=== PATIENT | male | born 1940 | race Hispanic/Latino ===

== ENCOUNTER → 2022-02-15 | Outpatient (CLI) | payer OTHER ==
[~2022-02-15] MED LIST: GADOTERATE MEGLUMINE 10 MMOL/20 ML VIAL IV ONE
== END | disposition home or self-care (01) ==
LOC: RAH 13:11
PROVIDERS: ATTEND Family Medicine
DX: M47.26 Other spondylosis with radiculopathy, lumbar region (principal)
CPT/HCPCS: 72158; A9575

== ENCOUNTER 2023-10-17 15:33 | Observation (INO) | payer OTHER ==
[~2023-10-17] VITALS: Ht 172.7 cm; Wt 80.1 kg
[~2023-10-17 15:33] MED LIST changes: +BENA10TA88 PO; +CEPH500B PO; -GADOTERATE MEGLUMINE 10 MMOL/20 ML VIAL IV ONE; +GLIP10TA9 PO; +METO25TA6 PO; +PIOG45TA4 PO; +SIMV40TA59 PO; +SITA100T12 PO; +TAMS-1 PO
[2023-10-17 15:59] LABS: BASOPHILS # (AUTO) 0.06 K/uL (0.00-0.20); BASOPHILS % (AUTO) 0.6 % (0.0-5.0); EOSINOPHILS # (AUTO) 0.25 K/uL (0.00-0.70); EOSINOPHILS % (AUTO) 2.4 % (0.0-8.0); HEMATOCRIT 43.4 % (42-54); IMMATURE GRANULOCYTE ABSOLUTE 0.04 K/uL (0-1); LYMPHOCYTES # (AUTO) 3.7 K/uL (1.0-4.8); LYMPHOCYTES % (AUTO) 35.5 % (21.0-51.0); MEAN CORPUSCULAR HGB CONC 32.3 g/dL (32.0-36.0); MEAN CORPUSCULAR VOLUME 92.9 fL (79-99); MONOCYTES # (AUTO) 1.1 K/uL (0.1-1.0); MONOCYTES % (AUTO) 10.2 % (3.0-13.0); NEUTROPHILS # (AUTO) 5.4 K/uL (1.8-7.7); NEUTROPHILS % (AUTO) 50.9 % (40.0-77.0); PLATELET COUNT (AUTO) 195 K/uL (130-400); RED BLOOD CELL COUNT(AUTO) 4.67 MIL/uL (4.50-6.20); RED CELL DISTRIBUTION WIDTH 14.9 % (11.0-15.5); WHITE BLOOD COUNT (AUTO) 10.6 K/uL (4.8-10.8)
[2023-10-17 16:09] LABS: CREATININE 1.8 mg/dL (0.5-1.3); POTASSIUM 4.2 mmol/L (3.5-5.1)
[2023-10-17 16:27] LABS: PROTHROMBIN TIME 10.8 SEC (9.6-11.6)
[2023-10-17 16:28] LABS: PARTIAL THROMBOPLASTIN TIME 27.9 SEC (26.3-35.5)
[2023-10-17] MEDS: ACETAMINOPHEN 325 MG TAB PO ONE (18:06)
[2023-10-17] MEDS: ATORVASTATIN 40 MG TABLET PO ONE (18:30)
[2023-10-17] MEDS ORDERED: LACTULOSE 20 GM/30 ML UDCUP PO PRN (18:30)
[2023-10-17] MEDS ORDERED: ACETAMINOPHEN 650 MG SUPPOSITORY RC PRN (18:30)
[2023-10-17] MEDS ORDERED: ACETAMINOPHEN 325 MG TAB PO PRN (18:30)
[2023-10-17] MEDS ORDERED: HYDRALAZINE 20MG/ML VIAL IV PRN (18:30)
[2023-10-17] MEDS ORDERED: IPRATROPIUM/ALBUTEROL SULFATE 3 ML SOLUTION IH PRN (18:30)
[2023-10-17] MEDS: ASPIRIN 81MG CHEW TAB PO ONE (18:31)
[2023-10-17 19:10] LABS: SARS-CoV-2, RNA, NAAT NEGATIVE SARS CoV-2 (NEGATIVE)
[2023-10-17 19:17] LABS: INFLUENZA TYPE A Negative For Type A (NEGATIVE); INFLUENZA TYPE B Negative For Type B (NEGATIVE)
[2023-10-17 22:08] LABS: APPEARANCE,URINE CLEAR (CLEAR); BILIRUBIN,URINE NEGATIVE (NEGATIVE); COLOR,URINE LIGHT-YELLOW (YELLOW); GLUCOSE, URINE (UA) NEGATIVE (NEGATIVE); KETONES,URINE NEGATIVE (NEGATIVE); LEUKOCYTE ESTERASE ,URINE NEGATIVE Leu/uL (NEGATIVE); NITRATE,URINE NEGATIVE (NEGATIVE); OCCULT BLOOD,URINE NEGATIVE (NEGATIVE); PH,URINE 6.5 (5.0-8.0); PROTEIN,URINE 70 mg/dL (NEGATIVE); UROBILINOGEN,URINE 0.2 mg/dL (0.2-1.0)
[2023-10-17 22:12] LABS: ADD UA MICROSCOPIC YES
[2023-10-17 22:13] LABS: BACTERIA,URINE RARE /HPF (None Seen); RBC,URINE 0-1 /HPF (0-1); SQUAMOUS EPITHELIAL CELL,UR RARE /HPF (0-2); WBC,URINE 0-1 /HPF (0-1)
[2023-10-17] MEDS ORDERED: SITA50TA PO (23:38)
[2023-10-17] MEDS ORDERED: CLOP75TA32 PO (23:38)
[2023-10-17] MEDS ORDERED: METO-408 PO (23:38)
[2023-10-17 23:50] VITALS: BP 165/71; PULSE 58; RESP 22
[2023-10-18] VITALS (15 sets, daily range): BP systolic 134–164; BP diastolic 63–89; PULSE 57–84; RESP 16–20; O2SAT 97–100
[2023-10-18] MEDS: 0.9%NACL 1000ML 1,000 ML IV SCH ×2 (01:36→21:26)
[2023-10-18 04:41] LABS: CREATININE 1.8 mg/dL (0.5-1.3); MAGNESIUM 1.7 mg/dL (1.80-2.40); PHOSPHORUS 3.4 mg/dL (2.5-4.9); POTASSIUM 4.1 mmol/L (3.5-5.1); THYROID STIMULATING HORMONE 2.5 uIU/mL (0.36-3.74)
[2023-10-18] MEDS: ATORVASTATIN 40 MG TABLET PO SCH (09:06)
[2023-10-18] MEDS: ENOXAPARIN SODIUM 40 MG/0.4 ML SYRINGE SQ SCH (09:06)
[2023-10-18] MEDS: CLOPIDOGREL 75MG TAB PO SCH (09:06)
[2023-10-18] MEDS: PANTOPRAZOLE 40 MG TAB DR PO SCH (09:06)
[2023-10-18] MEDS: ASPIRIN 81MG CHEW TAB PO SCH (09:06)
[2023-10-19 03:49] LABS: BASOPHILS # (AUTO) 0.06 K/uL (0.00-0.20); BASOPHILS % (AUTO) 0.7 % (0.0-5.0); EOSINOPHILS # (AUTO) 0.26 K/uL (0.00-0.70); EOSINOPHILS % (AUTO) 3.2 % (0.0-8.0); HEMATOCRIT 38.6 % (42-54); IMMATURE GRANULOCYTE ABSOLUTE 0.02 K/uL (0-1); LYMPHOCYTES # (AUTO) 2.7 K/uL (1.0-4.8); LYMPHOCYTES % (AUTO) 33.2 % (21.0-51.0); MEAN CORPUSCULAR HEMOGLOBIN 30.1 pg (27.0-33.0); MEAN CORPUSCULAR HGB CONC 32.6 g/dL (32.0-36.0); MEAN CORPUSCULAR VOLUME 92.3 fL (79-99); MONOCYTES # (AUTO) 0.8 K/uL (0.1-1.0); MONOCYTES % (AUTO) 10.1 % (3.0-13.0); NEUTROPHILS # (AUTO) 4.3 K/uL (1.8-7.7); NEUTROPHILS % (AUTO) 52.6 % (40.0-77.0); PLATELET COUNT (AUTO) 184 K/uL (130-400); RED BLOOD CELL COUNT(AUTO) 4.18 MIL/uL (4.50-6.20); RED CELL DISTRIBUTION WIDTH 14.6 % (11.0-15.5); WHITE BLOOD COUNT (AUTO) 8.1 K/uL (4.8-10.8)
[2023-10-19 03:55] LABS: CREATININE 1.7 mg/dL (0.5-1.3); POTASSIUM 3.8 mmol/L (3.5-5.1)
[2023-10-19 04:29] VITALS: BP 146/69; PULSE 60; RESP 18
[2023-10-19 04:31] VITALS: BP 123/70; PULSE 64; RESP 18
[2023-10-19 04:32] VITALS: BP 144/72; PULSE 66; RESP 18
[2023-10-19] MEDS ORDERED: MAGNESIUM 2GM PREMIX 50ML 50 ML IV PRN (05:00)
[2023-10-19] MEDS ORDERED: POTASSIUM CHLORIDE 10% ELIXIR 20 MEQ/15 ML UDCUP PO PRN (05:00)
[2023-10-19] MEDS ORDERED: POTASSIUM CHLORIDE 10MEQ/100ML 100 ML IV PRN ×2 (05:00)
[2023-10-19] MEDS ORDERED: KCL 20 MEQ ERTAB PO PRN (05:00)
[2023-10-19] MEDS ORDERED: PANT40TA PO (05:21)
[2023-10-19] MEDS ORDERED: CLOP-31 PO (05:21)
[2023-10-19] MEDS ORDERED: ATOR40TA69 PO (05:21)
[2023-10-19] MEDS ORDERED: HYDR-3420 PO (05:22)
[2023-10-19 07:09] VITALS: RESP 20; O2SAT 96
[2023-10-19 07:34] VITALS: BP 160/78; PULSE 60; RESP 20
[2023-10-19 08:00] VITALS: O2SAT 97
[2023-10-19] MEDS: HYDRALAZINE HCL 10 MG TABLET PO SCH (10:04)
== END 2023-10-19 11:00 | disposition home or self-care (01) ==
LOC: EDH 15:33 → EDHIP 17:45 → 2DH 23:45
PROVIDERS: ADMIT Internal Medicine Critical Care Medicine; ATTEND Internal Medicine Critical Care Medicine
DX: G45.9 Transient cerebral ischemic attack, unspecified (principal); Z20.822 Contact with and (suspected) exposure to COVID-19; I12.9 Hypertensive chronic kidney disease with stage 1 through stage 4 chronic kidney disease, or unspecified chronic kidney disease; E11.22 Type 2 diabetes mellitus with diabetic chronic kidney disease; N18.32 Chronic kidney disease, stage 3b; E11.65 Type 2 diabetes mellitus with hyperglycemia; E78.5 Hyperlipidemia, unspecified; H91.90 Unspecified hearing loss, unspecified ear; H54.61 Unqualified visual loss, right eye, normal vision left eye; N40.0 Benign prostatic hyperplasia without lower urinary tract symptoms; R29.700 NIHSS score 0; F17.200 Nicotine dependence, unspecified, uncomplicated; Z79.02 Long term (current) use of antithrombotics/antiplatelets; Z79.899 Other long term (current) drug therapy
CPT/HCPCS: 99285; 84484; 80048 ×3; 85025 ×2; 85610; 85730; 87804 ×2; 82948; 81001; 36415 ×3; 87635; 71045; 70450; 93880; 93005; 96372 ×2; 96360; 96361 ×2; 83036; 84443; 83735; 84100; 80061; 93306; 93356; 70551; 97161; 97116; 92522; 92610; 94664; G0378 ×16; J1650 ×2